=== PATIENT | female | born 1975 | race Two or more races ===

== ENCOUNTER 2025-05-27 18:52 | Emergency (ER) | payer MEDICAID, SELFPAY ==
[2025-05-27 19:25] VITALS: BP 147/93; PULSE 72; RESP 18; TEMP 36.9; O2SAT 97
--- NOTE | 2025-05-27 19:48 | XR_ITS ---
Examination: Pelvic ultrasound, transabdominal, complete Technique: Transabdominal ultrasound of the pelvis performed using grayscale imaging Date and time of exam: May 27, 2025 at 2004 hours INDICATIONS: Lower pelvic pain and bleeding beginning 2 days ago FINDINGS: Uterus 10.6 cm, large mass contiguous with the right uterus 8.6 x 6.3 x 6.8 cm Ovaries not visualized IMPRESSION: Large mass contiguous with the uterus 8.3 x 6.3 x 6.8 cm, differential would include exophytic area of uterine fibroid degeneration versus right adnexal mass Recommend repeating this pelvic sonogram in the a.m. with radiologist in attendance
--- NOTE | 2025-05-27 19:49 | PD.EDABDPN ---
ED Abdominal Pain RME/HPI General Chief Complaint: Abdominal Pain Stated complaint: Abdominal pain, vaginal bleeding today Time seen by provider: 05/27/25 19:27 Arrival date/time: 05/27/25 18:52 Source: patient, RN notes reviewed and old records reviewed Mode of arrival: ambulatory Limitations: no limitations RME / HPI RME / HPI narrative: 50yof presents to ED for pelvic pain, vaginal bleeding that started today. Patient reports vaginal spotting for one day 3 weeks ago and then heavier bleeding today. Prior to this month, patient had not had a menstrual cycle for the past year and was told she is probably in menopause. History of uterine fibroids. No fever, n/v, back pain, dysuria or vaginal discharge reported. Patient took Tylenol this afternoon with some relief. Related Data Previous Rx's ?Medication ?Instructions ?Recorded Hydrocodone/Acetaminophen * (NORCO 1 tab PO Q6H PRN pain #8 tabs 03/02/15 5/325 *) Hydrocodone/Acetaminophen * (NORCO 1 tab PO Q4H PRN ddental abscess 05/31/16 5/325 *) #20 tabs acetaminophen 500 mg tablet 1,000 mg (2 x 500 mg) PO Q6H PRN 05/27/25 (Tylenol Extra Strength) pain #30 tabs methocarbamol 500 mg tablet 1,000 mg (2 x 500 mg) PO Q8H PRN 05/27/25 pain #30 tabs Allergies Allergy/AdvReac Type Severity Reaction Status Date / Time No Known Allergies Allergy Unverified 05/27/25 19:52 Review of Systems Review of Systems Systems Reviewed: All systems reviewed, normal except as documented Constitutional Constitutional: Denies chills and Denies fever(s) Gastrointestinal Gastrointestinal: Denies nausea and Denies vomiting Genitourinary Genitourinary: Reports abnormal menses, Reports abnormal vaginal bleeding, Denies dysuria, Denies flank pain and Reports pelvic pain Musculoskeletal Musculoskeletal: Denies back pain Past Medical History Past Medical History GASTROINTESTINAL: Positive Obesity REPRODUCTIVE: Positive Fibroids Surgical History SURGICAL: Positive Section OTHER SURGICAL HX: Left leg Social History SMOKING STATUS: Never smoker SUBSTANCE USE: does not use ALCOHOL: Never ED Exam General Limitations: Present no limitations General appearance: Present alert and in no apparent distress Head Head exam: Present atraumatic and normocephalic Eye Eye exam: Present normal appearance, PERRL and EOMI ENT ENT exam: Present normal exam and mucous membranes moist Neck Neck exam: Present normal inspection and full ROM Chest Chest inspection: Present normal inspection and symmetric chest wall rise Respiratory Respiratory exam: Present normal lung sounds bilaterally; Absent respiratory distress Cardiovascular Cardiovascular exam: Present regular rate and normal rhythm Abdominal Exam Abdominal exam: Present soft and tenderness (mild mid-pelvic ttp); Absent distention, guarding or rebound Extremities Exam Extremities exam: Present normal inspection and full ROM Back Exam Back exam: Absent CVA tenderness (R) or CVA tenderness (L) Neurological Exam Neurological exam: Present alert and oriented X3 Psychiatric Psychiatric exam: Present normal affect and normal mood Skin Skin exam: Present warm, dry, intact and normal color Course Quality Measures none Orders Category Date Time Status US pelvic complete Stat Exams 05/27/25 19:48 Completed CBC Stat Lab 05/27/25 21:06 Completed CMP [Comprehensive Metabolic Panel] Stat Lab 05/27/25 21:06 Completed CYCLObenzaPRINE [Flexeril] Med 05/27/25 19:48 Discontinued 5 mg PO X1 ONE Ibuprofen Tab [Motrin Tab] Med 05/27/25 19:48 Discontinued 600 mg PO X1 ONE Vital Signs Vital signs: Vital Signs Temperature 98.4 F 05/27/25 19:25 Pulse Rate 72 05/27/25 19:25 Respiratory Rate 18 05/27/25 19:25 Blood Pressure 147/93 H 05/27/25 19:25 Pulse Oximetry (%) 97 05/27/25 19:25 Oxygen Delivery Method Room Air 05/27/25 19:25 Abdominal Pain MDM MDM Narrative MDM Narrative:: 50yof presents to ED for pelvic pain, vaginal bleeding that started today. Patient reports vaginal spotting for one day 3 weeks ago and then heavier bleeding today. Prior to this month, patient had not had a menstrual cycle for the past year and was told she is probably in menopause. History of uterine fibroids. No fever, n/v, back pain, dysuria or vaginal discharge reported. Patient took Tylenol this afternoon with some relief. Patient updated on labs and imaging. 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 Motrin/tylenol prn pain. Stable for dc, RTED precautions given. Patient data External records reviewed:: None (no prior visits) Clinical information provided by:: patient Social determinants that could affect healthcare access:: other (specify) (acculturation difficulty) Patient has the following chronic illnesses:: fibroids How is presenting disease/condition affected by chronic disease/condition?: exacerbated by Evaluation data The following diagnostics were reviewed and interpreted by me:: lab results and radiology exam(s) Lab and/or radiology exams considered but not ordered:: none Interpretation Summary: No leukocytosis No anemia Pelvic ultrasound: Uterine fibroid Medications / Prescriptions Medications or Prescriptions considered but not ordered:: no antibiotics recommended at this time Medication administrations:: Medication Administration History Discontinued Medications Cyclobenzaprine HCl (Cyclobenzaprine 5 Mg Tablet) 5 mg PO X1 ONE Stop: 05/27/25 19:49 Last Admin: 05/27/25 20:40 Dose: 5 mg Documented By: BREE Ibuprofen (Ibuprofen Tab 600 Mg Tablet) 600 mg PO X1 ONE Stop: 05/27/25 19:49 Last Admin: 05/27/25 20:41 Dose: Not Given Documented By: BREE Non-Admin Reason: Patient Refused above medications administered in ED Consultations Consultation(s) initiated? (list below): No Diagnosis Differential diagnosis abdominal pain: other (UTI, abnormal vaginal bleeding, menopause, pelvic pain, ovarian cyst, uterine fibroid) Most likely diagnosis given after review of the tests above:: DUB, fibroids Admission Indicated Admission indicated?: not indicated Admission Request Was there a request for admission?: No Disposition Plan Disposition Plan: Discharge Discharge Attestation Discharge Attestation: The patient and all family members were given an opportunity to ask questions and understood the discharge instructions. Discharge instructions specifically effects, indications for sooner follow up or return to the emergency department, and the expected course of current diagnosis. Patient condition: Stable Discharge Plan Plan Patient Disposition: HOME (Self Care) Patient condition on transfer: Stable Prescriptions/Referrals Prescriptions/Med Rec: New acetaminophen [Tylenol Extra Strength] 500 mg tablet 1,000 mg PO Q6H PRN (Reason: pain) Qty: 30 0RF methocarbamol 500 mg tablet 1,000 mg PO Q8H PRN (Reason: pain) Qty: 30 0RF No Action Hydrocodone/Acetaminophen * (NORCO 5/325 *) 1 TAB tablet 1 tab PO Q6H PRN (Reason: pain) Qty: 8 0RF Rx Instructions: Do not drive. Hydrocodone/Acetaminophen * (NORCO 5/325 *) 1 TAB tablet 1 tab PO Q4H PRN (Reason: ddental abscess) Qty: 20 0RF Referrals: Diego Ku MD [Primary Care Provider] - In 1 week Arvind (Referring),MD Benji [Referring Provider] - (Call to schedule an appointment for visit) Problem List Clinical Impression: Uterine fibroid, Abnormal vaginal bleeding Patient/Caregiver Discharge Instructions Education Materials: ED Dysfunctional Uterine Bleeding, ED Uterine Fibroids Print Language: Danish Stand Alone Forms: Yael Award Info., Work/School Release, Patient Portal Info Letter PA/[employer]AL [employer]LLING M[employer] OPERATOR Supervising Physician PA/METAL ROLLING M[employer] OPERATOR Supervising Physician: Brittney
[2025-05-27] MEDS: CYCLObenzaPRINE 5 MG TABLET PO (20:40)
[2025-05-27 21:26] LABS: Basophils # (Auto) 0.1 Thou/mm3 (0.0-0.2); Basophils % (Auto) 1 % (0-2.5); Eosinophils # (Auto) 0.2 Thou/mm3 (0.0-0.5); Eosinophils % (Auto) 2 % (0-10); Hematocrit 39.1 % (36.0-46.0); Hemoglobin 13.3 g/dL (12.0-16.0); Immature Granulocytes % (Auto) 0 % (0-0); Immature Granulocytes Auto 0.03 Thou/mm3 (0.00-0.00); Lymphocytes # (Auto) 2.1 Thou/mm3 (1.0-4.8); Lymphocytes % (Auto) 22 % (10-50); Mean Corpuscular Hemoglobin 30.1 pg (25.0-35.0); Mean Corpuscular Volume 89 fL (80-100); Monocytes # (Auto) 0.6 Thou/mm3 (0.0-0.8); Monocytes % (Auto) 6 % (0-12); Neutrophils # (Auto) 6.4 Thou/mm3 (1.8-7.7); Neutrophils % (Auto) 69 % (37-80); Nucleated Red Blood Cell % 0 /100 WBC (0); Platelet Count 223 Thou/mm3 (140-440); RDW Standard Deviation 40.8 fL (36.4-46.3); Red Blood Count 4.42 Miln/mm3 (4.00-5.20); White Blood Count 9.3 Thou/mm3 (3.6-11.0)
[2025-05-27 21:51] LABS: Alanine Aminotransferase 42 U/L (10-49); Albumin, Serum 4.6 gm/dL (3.5-5.0); Albumin/Globulin Ratio 1.7 (1.2-2.2); Alkaline Phosphatase 77 U/L (46-116); Anion Gap 7 (7-16); Aspartate Amino Transferase 27 U/L (0-34); BUN/Creatinine Ratio 10 Ratio (12-20); Bilirubin,Total 0.6 mg/dL (0.3-1.2); Blood Urea Nitrogen 7 mg/dL (9-23); Calcium 9.1 mg/dL (8.3-10.6); Calcium (Corrected) 9.1 mg/dL (8.5-10.1); Carbon Dioxide 25.8 mMol/L (20.0-31.0); Chloride 108 mMol/L (98-107); Creatinine (Component) 0.7 mg/dL (0.6-1.3); Globulin 2.7 gm/dL (2.3-3.5); Glucose 95 mg/dL (74-106); Osmolality,Calculated 279 (275-295); Potassium 4.1 mMol/L (3.4-5.1); Sodium 141 mMol/L (136-145); Total Protein 7.3 gm/dL (5.7-8.2); eGFR > 60 See Note
[2025-05-27 23:35] VITALS: RESP 18
== END 2025-05-27 23:36 | disposition home or self-care (01) ==
PROVIDERS: Physician Assistant; Emergency Provider Emergency Medicine; PCP Family Medicine
DX: D25.9 Leiomyoma of uterus, unspecified (principal)
CPT/HCPCS: 36415; 76856; 80053; 81001; 85025; 99284; A9270